=== PATIENT | male | born 1995 | race Caucasian/White ===

== ENCOUNTER 2023-01-23 13:58 | Emergency (ER) | payer OTHER, SELFPAY ==
[2023-01-23 14:08] VITALS: BP 160/80; PULSE 104; RESP 15; TEMP 36.4; O2SAT 100; BMI 30.4
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
[2023-01-23] MEDS: ACETAMINOPHEN 325 MG TABLET 975 MG PO (15:13)
[2023-01-23 16:40] VITALS: BP 146/81; PULSE 103; O2SAT 99
== END 2023-01-23 17:02 | disposition home or self-care (01) ==
PROVIDERS: Emergency Provider Emergency Medicine
DX: S06.0X0A Concussion without loss of consciousness, initial encounter (principal); S52.131A Displaced fracture of neck of right radius, initial encounter for closed fracture; S52.502A Unspecified fracture of the lower end of left radius, initial encounter for closed fracture; V19.9XXA Pedal cyclist (driver) (passenger) injured in unspecified traffic accident, initial encounter
CPT/HCPCS: 29125; 73080; 73090; 73110; 99284